=== PATIENT | male | born 1995 | race Caucasian/White ===

== ENCOUNTER 2017-09-07 03:25 | Emergency (ER) | payer BC ==
[~2017-09-07] VITALS: Ht 175.3 cm; Wt 88.0 kg
[2017-09-07 03:34] VITALS: TEMP 36.7; Ht 175.3 cm; Wt 88.0 kg
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
[2017-09-07] MEDS ORDERED: PSEU30TA20 PO (04:01)
[2017-09-07 05:31] VITALS: BP 119/83; PULSE 88; O2SAT 97
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
== END 2017-09-07 05:31 | disposition home or self-care (01) ==
LOC: C.EDB 03:26
DX: S00.83XA Contusion of other part of head, initial encounter (principal); F10.129 Alcohol abuse with intoxication, unspecified; T74.11XA Adult physical abuse, confirmed, initial encounter; R51 Headache; Z87.828 Personal history of other (healed) physical injury and trauma; Y04.0XXA Assault by unarmed brawl or fight, initial encounter